=== PATIENT | male | born 2000 | race Caucasian/White ===

== ENCOUNTER 2019-04-03 00:39 | Emergency (ER) | payer SELFPAY ==
[~2019-04-03] VITALS: Ht 160 cm; Wt 89.8 kg
[2019-04-03] MEDS ORDERED: RX-ALBUTEROL INHALER (PROAIR) 8 GM IH ONE (00:48)
--- NOTE | 2019-04-03 00:50 | ED Respiratory ---
General Chief Complaint: Respiratory Problems Stated Complaint: TROUBLE BREATHING,ASTHMA Source: patient Exam Limitations: no limitations History of Present Illness Date Seen by Provider: Apr 03, 2019 Time Seen by Provider: 00:48 Initial Comments Patient traveling to [place]. He does not have his albuterol inhaler with him. He feels a little short of breath and is afraid he is going to have a full- blown attack [place]. This happened to him once before and did not have an inhaler. Allergies and Home Medications Allergies Coded Allergies: No Known Drug Allergies (Unverified , 04/03/19) Patient Home Medication List Home Medication List Reviewed: Yes Review of Systems Review of Systems Constitutional: no symptoms reported EENTM: no symptoms reported Respiratory: cough, short of breath Cardiovascular: no symptoms reported Genitourinary: no symptoms reported Musculoskeletal: no symptoms reported All Other Systems Reviewed Negative Unless Noted: Yes Physical Exam Vital Signs - First Documented 04/03/19 00:46 Temp 98.8 Pulse 84 Resp 20 B/P (MAP) 159/83 Pulse Ox 95 O2 Delivery Room Air Capillary Refill : Height: '" Weight: lbs. oz. kg; BMI Method: General Appearance: WD/WN, no apparent distress HEENT: pharynx normal Neck: supple Respiratory: lungs clear, normal breath sounds Cardiovascular: regular rate, rhythm, no edema Gastrointestinal: soft Extremities: normal inspection Neurologic/Psychiatric: alert, normal mood/affect Skin: normal color, warm/dry Progress/Results/Core Measures Suspected Sepsis SIRS Temperature: Pulse: Respiratory Rate: Blood Pressure / Mean: Results/Orders My Orders Orders - SILVA CONTRERAS MD Rx-Albuterol Inhaler (Rx-Proair) (04/03/19 01:00) Vital Signs/I&O 04/03/19 00:46 Temp 98.8 Pulse 84 Resp 20 B/P (MAP) 159/83 Pulse Ox 95 O2 Delivery Room Air Capillary Refill : Progress Note : Time: 00:49 Progress Note We gave patient a albuterol inhaler to take with him. Departure Impression Primary Impression: Asthma attack Disposition: HOME, SELF-CARE Condition: Stable Departure-Patient Inst. Decision time for Depature: 00:54 Patient Instructions: Asthma, Adult (DC) Add. Discharge Instructions: His inhaler 2 puffs every 4-6 hours as needed. All discharge instructions reviewed with patient and/or family. Voiced understanding. SILVA CONTRERAS MD Apr 03, 2019 00:49
--- OUTSIDE RECORDS SUMMARY | 2019-04-03 00:58 | XMS REPORT | Clinical Summary ---
Author Author [facility] Organization [facility] Address [address] [place] [address] Phone Care Team Providers Care Meteorological Equipment Repairer Name Role Phone GIOVANNA ANDERSON MD PCP Conditions or Problems Problem Name Problem Code Onset Date Status Entry Date Provider Comment Standard Description Annotate Encounter for routine child health examination with abnormal findings 154194328 (SNOMED CT) Active GIOVANNA ANDERSON MD Adult health examination Encounter for routine child health examination without abnormal findings Z00.129 (ICD-10-CM) Active GIOVANNA ANDERSON MD Encounter for routine child health examination without abnormal findings Primary insomnia 7691745 (SNOMED CT) Active GIOVANNA ANDERSON MD Primary insomnia Mild intermittent asthma J45.20 (ICD-10-CM) Active GIOVANNA ANDERSON MD Mild intermittent asthma, uncomplicated Seasonal Allergies 121406167 (SNOMED CT) Active GIOVANNA ANDERSON MD Seasonal allergy Medications Medication Instructions Start Date Stop Date Generic Name [facility] Provider ZYRTEC ALLERGY 10 MG TABS Take ONE tablet daily as needed CETIRIZINE HCL 37180316847 GIOVANNA ANDERSON MD PROAIR HFA 108 (90 Base) MCG/ACT AERS Use 2 puffs every 4 hours as needed ALBUTEROL SULFATE 75267036211 GIOVANNA ANDERSON MD TRAZODONE HCL 50 MG TABS take ONE and 1/2 tabs nightly before bed TRAZODONE HCL 56238529920 GIOVANNA ANDERSON MD Medications Administered No information available. Allergies, Adverse Reactions, Alerts No information available. Results Date Name Value Unit Range Flag Description Office Visit: 16yr [facility] / SEASONAL ALLERGIES / MILD INTERMITTENT ASTHMA INSTRUCTIONS SEASONAL ALLERGY-Call if worse or not improved in two days.MILD INTERMITTENT Diagnosis of asthma confirmed per National Asthma Education program guidelines. Parent understands the use/side effects of pr escribed medications. Barriers to prevention of attacks reviewed such allergen/smoke exposure, poor technique, intermittent compliance or medication confusion. An Asthma Action Plan given, reviewed and understood. Referred to additional educational resources as per request. Counseled on healthy lifestyle and regular exercise. Recheck in 1 to 2 months, with spirometry as appropriate, or sooner if symptoms worsen.Condition is stable according to National Asthma Education program Standards and home peak flow data if provided. Continue current medications. Barriers to prevention of attacks reviewed such allergen/smoke exposure, poor technique, intermittent compliance or medication confusion. Parent understands the use/side effects of prescribed medications as well as interactions and contraindications with OTC medications/supplements. Discussed allergy referral as appropriate. Spirometry results reviewed if performed. Updated copy of the Asthma Action Plan given, reviewed and understood. Goal is 100% control. Referred to additional online resources such as www.cdc.gov/asthma/children, www.asthma.com, and the office website. Counseled on healthy lifestyle and regular exercise. Provided Copy of the care plan as contained in the clinical summary.Recheck in 1 to 2 months or sooner if symptoms worsen.Growth and Development Appropriate.Routine anticipatory guidance for 16yr check up reviewed. Also any specific issues noted above. Chronic disease issues were addressed with this visit. Follow up in 1 year for check up. Giving encouragement to exercise (procedure) SMOK STATUS Former smoker Tobacco smoking status WAIS MEDS REVIEW ON NO RX MEDS Documentation of current medications (procedure) Plan of Care Type Date Detail Patient education Handouts/mdk/WELL CHECK VITAL SIGN Procedures No information available. Vital Signs Date Name Value Unit Description BMI (Body Mass Index) 28.77 kg/m2 Body Mass Index [Ratio] BP Diastolic 68 mm[Hg] blood pressure, diastolic - 8462-4 BP Systolic 128 mm[Hg] blood pressure, systolic - 8480-6 Heart Rate 72 /min pulse rate E&M - 8867-4 Height 62.25 [in_us] height E&M - 8302-2 Height 158.12 cm height in centimeters E&M Weight Measured 158 [lb_av] weight E&M - 3141-9 Weight Measured 71.82 kg weight in kilograms E&M
--- OUTSIDE RECORDS SUMMARY | 2019-04-03 00:58 | XMS REPORT | Clinical Summary ---
Author Author [facility] Organization [facility] Address [address] [place] [address] Phone Care Team Providers Care Group Work Program Director Name Role Phone GIOVANNA ANDERSON MD PCP Conditions or Problems Problem Name Problem Code Onset Date Status Entry Date Provider Comment Standard Description Annotate Encounter for routine child health examination with abnormal findings 329439456 (SNOMED CT) Active GIOVANNA ANDERSON MD Adult health examination Encounter for routine child health examination without abnormal findings Z00.129 (ICD-10-CM) Active GIOVANNA ANDERSON MD Encounter for routine child health examination without abnormal findings Primary insomnia 4054231 (SNOMED CT) Active GIOVANNA ANDERSON MD Primary insomnia Mild intermittent asthma J45.20 (ICD-10-CM) Active GIOVANNA ANDERSON MD Mild intermittent asthma, uncomplicated Seasonal Allergies 885113078 (SNOMED CT) Active GIOVANNA ANDERSON MD Seasonal allergy Medications Medication Instructions Start Date Stop Date Generic Name [facility] Provider ZYRTEC ALLERGY 10 MG TABS Take ONE tablet daily as needed CETIRIZINE HCL 04253572526 GIOVANNA ANDERSON MD PROAIR HFA 108 (90 Base) MCG/ACT AERS Use 2 puffs every 4 hours as needed ALBUTEROL SULFATE 27503736965 GIOVANNA ANDERSON MD TRAZODONE HCL 50 MG TABS take ONE and 1/2 tabs nightly before bed TRAZODONE HCL 20416755538 GIOVANNA ANDERSON MD Medications Administered No information [...] SMOK STATUS Former smoker Tobacco smoking status NHIS MEDS REVIEW ON NO RX MEDS Documentation of current medications (procedure) Vaccine Consent: VFC Vaccine VFC ELIGIBLE Yes child eligible for VFC (Vaccines for Children program) Plan of Care Type Date Detail Patient [...]
--- OUTSIDE RECORDS SUMMARY | 2019-04-03 00:58 | XMS REPORT | Clinical Summary ---
Author Author [facility] Organization [facility] Address [address] [place] [address] Phone Care Team Providers Care Guest Room Inspector Name Role Phone GIOVANNA ANDERSON MD PCP Conditions or Problems Problem Name Problem Code Onset Date Status Entry Date Provider Comment Standard Description Annotate Allergic rhinitis, unspecified 139818278 (SNOMED CT) Active MIGUEL ALEXANDRE MD Allergic condition Acute atopic conjunctivitis, unspecified eye 836121314 (SNOMED CT) Active MIGUEL ALEXANDRE MD Allergic condition Encounter for routine child health examination with abnormal findings 971011732 (SNOMED CT) Inactive GIOVANNA ANDERSON MD Adult health examination Encounter for routine child health examination without abnormal findings Z00.129 (ICD-10-CM) Active GIOVANNA ANDERSON MD Encounter for routine child health examination without abnormal findings Primary insomnia 5514485 (SNOMED CT) Active GIOVANNA ANDERSON MD Primary insomnia Mild intermittent asthma J45.20 (ICD-10-CM) Active GIOVANNA ANDERSON MD Mild intermittent asthma, uncomplicated Seasonal Allergies 140150104 (SNOMED CT) Inactive GIOVANNA ANDERSON MD Seasonal allergy Medications Medication Instructions Start Date Stop Date Generic Name [facility] Provider PEAK FLOW METER UNIVERSAL RANG ARLEN DIAGNOSIS REQUIRED: Dx of ___asthma_ Use daily or as otherwise instructed by physician. PEAK FLOW METER [id number] MIGUEL ALEXANDRE MD PREDNISOLONE SODIUM PHOSPHATE 15 MG/5ML SOLN Take 1/2 tsp by mouth twice a day for 3 days. PREDNISOLONE SODIUM PHOSPHATE 69597558224 MIGUEL ALEXANDRE MD PATANOL 0.1 % SOLN Place 1 drop in both eyes twice daily as needed for allergies OLOPATADINE HCL 53840267516 MIGUEL ALEXANDRE MD PREDNISONE 20 MG TABS Take TWO tabs in the morning and ONE tab at bedtime for 3- 5 day PREDNISONE 78779863564 MIGUEL ALEXANDRE MD PROAIR HFA 108 (90 Base) MCG/ACT AERS Use 2 puffs every 4 hours as needed ALBUTEROL SULFATE 16022231581 GIOVANNA ANDERSON MD ZYRTEC ALLERGY 10 MG TABS Take ONE tablet daily as needed CETIRIZINE HCL 29508318557 GIOVANNA ANDERSON MD TRAZODONE HCL 50 MG TABS take ONE and 1/2 tabs nightly before bed TRAZODONE HCL 88752188935 GIOVANNA ANDERSON MD PREDNISOLONE SODIUM PHOSPHATE 15 MG/5ML SOLN Take 1/2 tsp by mouth twice a day for 3 days. PREDNISOLONE SODIUM PHOSPHATE 78811160733 MIGUEL ALEXANDRE MD Medications Administered No information available. Allergies, Adverse Reactions, Alerts No information available. Results Date Name Value Unit Range Flag Description Office Visit: 16yr [facility] / SEASONAL ALLERGIES / MILD INTERMITTENT ASTHMA [...] check up. Giving encouragement to exercise (procedure) Vaccine Consent: VFC Vaccine VFC ELIGIBLE Yes child eligible for VFC (Vaccines for Children program) Office Visit: allergies SMOK STATUS Never smoker Tobacco smoking status [facility] Office Visit: allergies f/u MEDS REVIEW LIST UP TO DATE Documentation of current medications (procedure) Plan of Care Type Date Detail Appointment 10:00 AM MIGUEL ALEXANDRE MD, [address] [place], [address], Pending order G & C Test DNA Amplified, Urine Patient education Handouts/mdk/WELL CHECK VITAL SIGN Procedures No information available. Vital Signs Date Name Value Unit Description Heart Rate 72 /min pulse rate E&M - 8867-4 O2 % BldC Oximetry 95 % oxygen saturation, oximetry BMI (Body Mass Index) 28.77 kg/m2 Body Mass Index [Ratio] BP Diastolic 68 mm[Hg] blood pressure, diastolic - 8462-4 BP Systolic 128 mm[Hg] blood pressure, systolic - 8480-6 Height 62.25 [in_us] height E&M - 8302-2 Height 158.12 cm height in centimeters E&M Weight Measured 158 [lb_av] weight E&M - 3141-9 Weight Measured 71.82 kg weight in kilograms E&M
--- OUTSIDE RECORDS SUMMARY | 2019-04-03 00:58 | XMS REPORT | Clinical Summary ---
Author Author [facility] Organization [facility] Address [address] [place] [address] Phone Care Team Providers Care Photovoltaic Testing Technician Name Role Phone GIOVANNA ANDERSON MD PCP Conditions or Problems Problem Name Problem Code Onset Date Status Entry Date Provider Comment Standard Description Annotate Encounter for routine child health examination with abnormal findings 504501846 (SNOMED CT) Active GIOVANNA ANDERSON MD Adult health examination Encounter for routine child health examination without abnormal findings Z00.129 (ICD-10-CM) Active GIOVANNA ANDERSON MD Encounter for routine child health examination without abnormal findings Primary insomnia 0898310 (SNOMED CT) Active GIOVANNA ANDERSON MD Primary insomnia Mild intermittent asthma J45.20 (ICD-10-CM) Active GIOVANNA ANDERSON MD Mild intermittent asthma, uncomplicated Seasonal Allergies 019312625 (SNOMED CT) Active GIOVANNA ANDERSON MD Seasonal allergy Medications Medication Instructions Start Date Stop Date Generic Name [facility] Provider ZYRTEC ALLERGY 10 MG TABS Take ONE tablet daily as needed CETIRIZINE HCL 65908999649 GIOVANNA ANDERSON MD PROAIR HFA 108 (90 Base) MCG/ACT AERS Use 2 puffs every 4 hours as needed ALBUTEROL SULFATE 58909958976 GIOVANNA ANDERSON MD TRAZODONE HCL 50 MG TABS take ONE and 1/2 tabs nightly before bed TRAZODONE HCL 50058528172 GIOVANNA ANDERSON MD Medications Administered No information [...] SMOK STATUS Former smoker Tobacco smoking status MIIS MEDS REVIEW ON NO RX MEDS Documentation [...]
--- OUTSIDE RECORDS SUMMARY | 2019-04-03 00:59 | XMS REPORT | Clinical Summary ---
Author Author [facility] Organization [facility] Address [address] [place] [address] Phone Care Team Providers Care Cookie Breaker Name Role Phone GIOVANNA ANDERSON MD PCP Conditions or Problems Problem Name Problem Code Onset Date Status Entry Date Provider Comment Standard Description Annotate Allergic rhinitis, unspecified 831791857 (SNOMED CT) Active MIGUEL ALEXANDRE MD Allergic condition Acute atopic conjunctivitis, unspecified eye 799601592 (SNOMED CT) Active MIGUEL ALEXANDRE MD Allergic condition Encounter for routine child health examination with abnormal findings 034877009 (SNOMED CT) Inactive GIOVANNA ANDERSON MD Adult health examination Encounter for routine child health examination without abnormal findings Z00.129 (ICD-10-CM) Active GIOVANNA ANDERSON MD Encounter for routine child health examination without abnormal findings Primary insomnia 1117575 (SNOMED CT) Active GIOVANNA ANDERSON MD Primary insomnia Mild intermittent asthma J45.20 (ICD-10-CM) Active GIOVANNA ANDERSON MD Mild intermittent asthma, uncomplicated Seasonal Allergies 585944584 (SNOMED CT) Active GIOVANNA ANDERSON MD Seasonal allergy Medications Medication Instructions Start Date Stop Date Generic Name [facility] Provider PREDNISOLONE SODIUM PHOSPHATE 15 MG/5ML SOLN Take 1/2 tsp by mouth twice a day for 3 days. PREDNISOLONE SODIUM PHOSPHATE 96098194755 MIGUEL ALEXANDRE MD PATANOL 0.1 % SOLN Place 1 drop in both eyes twice daily as needed for allergies OLOPATADINE HCL 38371491180 MIGUEL ALEXANDRE MD PREDNISONE 20 MG TABS Take TWO tabs in the morning and ONE tab at bedtime for 3- 5 day PREDNISONE 67548594738 MIGUEL ALEXANDRE MD ZYRTEC ALLERGY 10 MG TABS Take ONE tablet daily as needed CETIRIZINE HCL 55216493854 GIOVANNA ANDERSON MD PROAIR HFA 108 (90 Base) MCG/ACT AERS Use 2 puffs every 4 hours as needed ALBUTEROL SULFATE 66251196802 GIOVANNA ANDERSON MD TRAZODONE HCL 50 MG TABS take ONE and 1/2 tabs nightly before bed TRAZODONE HCL 31940097227 GIOVANNA ANDERSON MD Medications Administered No information available. Allergies, Adverse Reactions, Alerts No information available. Results Date Name Value Unit Range Flag Description Office Visit: 16yr [facility] / SEASONAL ALLERGIES / MILD INTERMITTENT ASTHMA [...] SMOK STATUS Never smoker Tobacco smoking status NHIS MEDS REVIEW LIST UP TO DATE Documentation of current medications (procedure) Plan of Care Type Date Detail Appointment 02:30 PM MIGUEL ALEXANDRE MD, [address] [place], [address], Patient education Handouts/mdk/WELL CHECK VITAL SIGN Procedures [...]
--- OUTSIDE RECORDS SUMMARY | 2019-04-03 00:59 | XMS REPORT | Clinical Summary ---
Author Author [facility] Organization [facility] Address [address] [place] [address] Phone Care Team Providers Care Slab Installer Name Role Phone MIGUEL ALEXANDRE MD PCP Conditions or Problems Problem Name Problem Code Onset Date Status Entry Date Provider Comment Standard Description Annotate Allergic rhinitis, unspecified 742745964 (SNOMED CT) Active MIGUEL ALEXANDRE MD Allergic condition Acute atopic conjunctivitis, unspecified eye 193048798 (SNOMED CT) Active MIGUEL ALEXANDRE MD Allergic condition Encounter for routine child health examination with abnormal findings 599232562 (SNOMED CT) Inactive GIOVANNA ANDERSON MD Adult health examination Encounter for routine child health examination without abnormal findings Z00.129 (ICD-10-CM) Active GIOVANNA ANDERSON MD Encounter for routine child health examination without abnormal findings Primary insomnia 6023508 (SNOMED CT) Active GIOVANNA ANDERSON MD Primary insomnia Mild intermittent asthma J45.20 (ICD-10-CM) Active GIOVANNA ANDERSON MD Mild intermittent asthma, uncomplicated Seasonal Allergies 054423315 (SNOMED CT) Inactive GIOVANNA ANDERSON MD Seasonal allergy Medications Medication Instructions Start Date Stop Date Generic Name [facility] Provider PEAK FLOW METER UNIVERSAL RANG ARLEN DIAGNOSIS REQUIRED: Dx of ___asthma_ Use daily or as otherwise instructed by physician. PEAK FLOW METER [id number] MIGUEL ALEXANDRE MD PREDNISOLONE SODIUM PHOSPHATE 15 MG/5ML SOLN Take 1/2 tsp by mouth twice a day for 3 days. PREDNISOLONE SODIUM PHOSPHATE 19298557731 MIGUEL ALEXANDRE MD PATANOL 0.1 % SOLN Place 1 drop in both eyes twice daily as needed for allergies OLOPATADINE HCL 63609179053 MIGUEL ALEXANDRE MD PREDNISONE 20 MG TABS Take TWO tabs in the morning and ONE tab at bedtime for 3- 5 day PREDNISONE 53632296975 MIGUEL ALEXANDRE MD PROAIR HFA 108 (90 Base) MCG/ACT AERS Use 2 puffs every 4 hours as needed ALBUTEROL SULFATE 71738436375 GIOVANNA ANDERSON MD ZYRTEC ALLERGY 10 MG TABS Take ONE tablet daily as needed CETIRIZINE HCL 27700817616 GIOVANNA ANDERSON MD TRAZODONE HCL 50 MG TABS take ONE and 1/2 tabs nightly before bed TRAZODONE HCL 51841275334 GIOVANNA ANDERSON MD PREDNISOLONE SODIUM PHOSPHATE 15 MG/5ML SOLN Take 1/2 tsp by mouth twice a day for 3 days. PREDNISOLONE SODIUM PHOSPHATE 63436101859 MIGUEL ALEXANDRE MD Medications Administered No information available. Allergies, Adverse Reactions, Alerts No information available. Results Date Name Value Unit Range Flag Description Office Visit: 16yr [facility] / SEASONAL ALLERGIES / MILD INTERMITTENT ASTHMA [...] SMOK STATUS Never smoker Tobacco smoking status [facility] Office Visit: allergies f/u MEDS REVIEW LIST UP TO DATE Documentation of current medications (procedure) Lab Report: CHLAMYDIA GC BY PCR GC PCR NEGATIVE NEG Neisseria gonorrhoeae DNA [Presence] in Unspecified specimen by Probe and target amplification method CHLAMYD PCR NEGATIVE NEG Chlamydia trachomatis DNA [Presence] in Urine by Probe and target amplification method SAMPLE SRC URINE source of sample Plan of Care Type Date Detail Pending order G & C Test DNA Amplified, Urine Patient education Handouts/mdk/WELL CHECK VITAL SIGN Procedures Code Procedure Name Date Entry Date CPT-52662 G & C Test DNA Amplified, Urine Vital Signs Date Name Value Unit Description [...]
--- OUTSIDE RECORDS SUMMARY | 2019-04-03 00:59 | XMS REPORT ---
Author Author Sharyn Hayden Organization [employer] Address Unknown Phone Unavailable Care Team Providers Care Technical Recruiter Name Role Phone Sharyn Hayden CP Unavailable Allergies, Adverse Reactions, Alerts Substance Reaction Event Type N.K.D.A. Info Not Available Non Drug Allergy Problems Problem Type Condition Code Onset Dates Condition Status Problem PTSD (post-traumatic stress disorder) F43.10 Active Problem Allergic rhinitis J30.9 Active Problem ADHD (attention deficit hyperactivity disorder) F90.9 Active Assessment Tobacco use Z72.0 Active Problem Behavior problems F69 Active Assessment Child physical exam Z00.129 Active Medications Medication Code System Code Instructions Start Date End Date Status Dosage Multivitamin [facility] [address] not defined Procedures Procedure Coding System Code Date Preventive Care New Pt. Age 12-17 CPT-4 89901 Jun 25, 2015 Vital Signs Date/Time: Jun 25, 2015 Blood Pressure Diastolic 68 mm Hg Blood Pressure Systolic 122 mm Hg Cardiac Monitoring Heart Rate 72 /min BMI 26.21 Index Weight 148 lbs Height 63 in Results No Known Results Summary Purpose [employer] Submission
--- OUTSIDE RECORDS SUMMARY | 2019-04-03 00:59 | XMS REPORT | Clinical Summary ---
Author Author [facility] Organization [facility] Address [address] [place] [address] Phone Care Team Providers Care Box Toe Maker Name Role Phone MIGUEL ALEXANDRE MD PCP Conditions or Problems Problem Name Problem Code Onset Date Status Entry Date Provider Comment Standard Description Annotate Allergic rhinitis, unspecified 512719914 (SNOMED CT) Active MIGUEL ALEXANDRE MD Allergic condition Acute atopic conjunctivitis, unspecified eye 707157755 (SNOMED CT) Active MIGUEL ALEXANDRE MD Allergic condition Encounter for routine child health examination with abnormal findings 105157722 (SNOMED CT) Inactive GIOVANNA ANDERSON MD Adult health examination Encounter for routine child health examination without abnormal findings Z00.129 (ICD-10-CM) Active GIOVANNA ANDERSON MD Encounter for routine child health examination without abnormal findings Primary insomnia 7744312 (SNOMED CT) Active GIOVANNA ANDERSON MD Primary insomnia Mild intermittent asthma J45.20 (ICD-10-CM) Active GIOVANNA ANDERSON MD Mild intermittent asthma, uncomplicated Seasonal Allergies 440587794 (SNOMED CT) Inactive GIOVANNA ANDERSON MD Seasonal allergy Medications Medication Instructions Start Date Stop Date Generic Name NDC Provider PEAK FLOW METER UNIVERSAL RANG ARLEN DIAGNOSIS REQUIRED: Dx of ___asthma_ Use daily or as otherwise instructed by physician. PEAK FLOW METER [id number] MIGUEL ALEXANDRE MD PREDNISOLONE SODIUM PHOSPHATE 15 MG/5ML SOLN Take 1/2 tsp by mouth twice a day for 3 days. PREDNISOLONE SODIUM PHOSPHATE 08414734335 MIGUEL ALEXANDRE MD PATANOL 0.1 % SOLN Place 1 drop in both eyes twice daily as needed for allergies OLOPATADINE HCL 32441129900 MIGUEL ALEXANDRE MD PREDNISONE 20 MG TABS Take TWO tabs in the morning and ONE tab at bedtime for 3- 5 day PREDNISONE 70938513228 MIGUEL ALEXANDRE MD PROAIR HFA 108 (90 Base) MCG/ACT AERS Use 2 puffs every 4 hours as needed ALBUTEROL SULFATE 83177473519 GIOVANNA ANDERSON MD ZYRTEC ALLERGY 10 MG TABS Take ONE tablet daily as needed CETIRIZINE HCL 84925847117 GIOVANNA ANDERSON MD TRAZODONE HCL 50 MG TABS take ONE and 1/2 tabs nightly before bed TRAZODONE HCL 84071049087 GIOVANNA ANDERSON MD PREDNISOLONE SODIUM PHOSPHATE 15 MG/5ML SOLN Take 1/2 tsp by mouth twice a day for 3 days. PREDNISOLONE SODIUM PHOSPHATE 70136602036 MIGUEL ALEXANDRE MD Medications Administered No information available. Allergies, Adverse Reactions, Alerts No information available. Results Date Name Value Unit Range Flag Description Office Visit: 16yr [facility] / SEASONAL ALLERGIES / MILD [...] SMOK STATUS Never smoker Tobacco smoking status [facility] Office Visit: allergies f/u MEDS REVIEW LIST UP TO DATE Documentation of current medications (procedure) Plan of Care Type Date Detail Appointment 10:00 AM MIGUEL ALEXANDRE MD, [address] [place], [address], Pending order G & C Test DNA [...]
--- OUTSIDE RECORDS SUMMARY | 2019-04-03 00:59 | XMS REPORT ---
Author Author [facility] OM[facility] [place] [address] Care Team Providers Care Quality Assurance Monitor Chassis Name Role Phone STEPHAN GAMBOA Unavailable ZENON BAXTER Unavailable KRISTIAN VELA Unavailable VERNON OMER Unavailable Problems Problem SNOMED Onset Date Resolved Date Status N/A N/A N/A N/A N/A Allergies, Adverse Reactions NA Care Plan Goal Instructions Child will be functioning well in all mattson. Further assessment by [facility] treatment team. Engage with treatment team to build rapport. Learn and practice coping skills to reduce symptoms and improve functioning. The following Services will be utilized 1 - 3 times until goal is reached: Improve and maintain functioning through medical psychiatric services. Initial Psychiatric Evaluation, Ongoing medication monitoring and management, Case Conference with multidisciplinary members of the [facility] team as indicated, and/or Collaboration and coordination with outside medical providers as indicated by providing the following services: 07863 interactive complexity 79071 psychiatric diagnostic eval w/ meds 16687 30 min psychotherapy add-on 12114 45 [place] [address] 60 min psychotherapy add-on 21930 med injection 60014 New Patient E&M (level 1) 10791 New Patient E&M (level 2) 25683 New Patient E&M (level 3) 48433 New patient E&M (level 4) 29513 New Patient E&M (level 5) 67360 Established Patient E&M (level 1) 15099 Established Patient E&M (level 2) 08845 Established Patient E&M (level 3) 06477 Established Patient E& amp;M (level 4) 28666 Established Patient E&M (level 5) 9935x prolonged service code 58154 case conference w/o clt & fam w/ [place] 229[address] case conference w/o clt w/ MD Child will be functioning well in all mattson. Further assessment by [facility] treatment team. Engage with treatment team to build rapport. Learn and practice coping skills to reduce symptoms and improve functioning. The following Services will be utilized 1 - 3 times until goal is reached: Improve and maintain functioning through medical psychiatric services. Initial Psychiatric Evaluation, Ongoing medication monitoring and management, Case Conference with multidisciplinary members of the [facility] team as indicated, and/or Collaboration and coordination with outside medical providers as indicated by providing the following services: 49565 interactive complexity 41628 psychiatric diagnostic eval w/ meds 85633 30 min psychotherapy add-on 58279 45 [place] [address] 60 min psychotherapy add-on 91132 med injection 39921 New Patient E&M (level 1) 64250 New Patient E&M (level 2) 02488 New Patient E&M (level 3) 62747 New patient E&M (level 4) 63217 New Patient E&M (level 5) 04561 Established Patient E&M (level 1) 10040 Established Patient E&M (level 2) 22760 Established Patient E&M (level 3) 50588 Established Patient E& amp;M (level 4) 07651 Established Patient E&M (level 5) 9935x prolonged service code 16964 case conference w/o tiffanie & kiel w/ 66232 case conference w/o tiffanie w/ Client desires to "age out" of foster care successfully, client will make safe choices and resolve distress in adaptive ways. Client will learn and show proficiency in coping skills to increase motivation, manage impulses, delay gratification, manage emotion reactivity without physical aggression or running away. Medications NA Lab Results NA Encounters Date Time Service Code Provider 11:31:00 am VERNON OMER 09:44:00 am VERNON OMER Family History Functional Status NA Immunizations NA Vital Signs NA Social History NA Hospital Discharge Instructions NA Instructions * Not Applicable Procedures NA Purpose Electronic Copy
--- OUTSIDE RECORDS SUMMARY | 2019-04-03 00:59 | XMS REPORT ---
Author Author [facility] OM[facility] Organization [place] [address] Care Team Providers Care Admission Nurse Name Role Phone STEPHAN GAMBOA Unavailable ZENON [...] as indicated by providing the following services: 57250 interactive complexity 69540 psychiatric diagnostic eval w/ meds 89036 30 min psychotherapy add-on 72929 45 [place] [address] 60 min psychotherapy add-on 54694 med injection 50336 New Patient E&M (level 1) 37956 New Patient E&M (level 2) 73180 New Patient E&M (level 3) 36587 New patient E&M (level 4) 08537 New Patient E&M (level 5) 29280 Established Patient E&M (level 1) 21730 Established Patient E&M (level 2) 93347 Established Patient E&M (level 3) 23256 Established Patient E& amp;M (level 4) 52516 Established Patient E&M (level 5) 9935x prolonged service code 34571 case conference w/o clt & [place]/ [place] 29775 case conference w/o clt w/ MD Child [...] Case Conference with multidisciplinary members of the [facility] team as indicated, and/or Collaboration and coordination with outside medical providers as indicated by providing the following services: 05656 interactive complexity 32757 psychiatric diagnostic eval w/ meds 06188 30 min psychotherapy add-on 94218 45 [place] [address] 60 min psychotherapy add-on 84218 med injection 51934 New Patient E&M (level 1) 88606 New Patient E&M (level 2) 45517 New Patient E&M (level 3) 49899 New patient E&M (level 4) 17590 New Patient E&M (level 5) 85845 Established Patient E&M (level 1) 85293 Established Patient E&M (level 2) 16301 Established Patient E&M (level 3) 13010 Established Patient E& amp;M (level 4) 59877 Established Patient E&M (level 5) 9935x prolonged service code 35691 case conference w/o tiffanie & kiel w/ 73643 case conference w/o tiffanie w/ Client desires [...]
--- OUTSIDE RECORDS SUMMARY | 2019-04-03 00:59 | XMS REPORT | Continuity Of Care Document ---
Author Author [facility] Organization [facility] Address [address] [place] [address] Phone Care Team Providers Care Calender Roll Press Operator Name Role Phone CRISTHIAN LEON MD PP SUNI BEAVERS MD AT Results Results No results recorded. Allergies and Adverse Reactions Allergies and Adverse Reactions Patient Unit Number: [id number] Agent Type Reaction Severity Status NO KNOWN DRUG ALLERGIES Drug Allergy Unknown Unknown Active Problem List Problem List Visit/Account #[id number] (2015 8:07pm - 2015 9:37pm) Acute Problems: Code/Condition Comments Documented Start Date Documented Resolved Date Code(s) Nasal bone fracture ICD10: S02.2XXA Fracture of nasal bone ICD9: 802.0 Fracture of nasal bone SNOMED: 997383239 Fracture of nasal bone Concussion ICD10: S06.0X9A Concussion ICD9: 850.9 Concussion SNOMED: 17451742 Concussion Plan of Care Plan Of Care Visit/Account #[id number] (2015 8:07pm - 2015 9:37pm) Patient Instructions Follow up with ENT next week. Call office on Thursday morning for appointment. Ice to the area of pain and swelling. Take ibuprofen 600 mg by mouth 3 times a day with food when necessary pain. Take Zofran as needed for nausea/vomiting. Take adequate rest in a dark room for 24 hrs and do not watch TV, video games or texting for 24 hours. Return to the emergency room if symptoms worsens or has any concern. Vital Signs Vital Signs Visit/Account #[id number] (2015 8:07pm - 2015 9:37pm) Sign First Result Last Result Code(s) Body Mass Index Body Mass Index (BMI): 27.0 kg/m2 On 2015 7:59pm 33317-1 BMI (body mass index) Body Mass Index as a Calculated Value 27.5 kg/m2 On 2015 7:59pm 80974-4 BMI (body mass index) Body Surface Area as a Calculated Value 1.74 m2 On 2015 7:59pm 3140-1 BSA (body surface area) Height (Feet/Inches) 5 [ft_us] 3 [in_us] On 2015 7:59pm Temperature in Fahrenheit Temperature (Fahrenheit): 100.4 [degF] On 2015 7:59pm 8310-5 Body Temperature Weight in Kilograms Weight (Kilograms): 70.45 kg On 2015 7:59pm 3141-9 Weight Measured 77700-0 Body weight measured in kilograms Functional Status Functional and Cognitive Status No Functional Status Data Medications Inpatient/Ordered Medications - Medications administered during hospital visit Visit/Account #[id number] (2015 8:07pm - 2015 9:37pm) Medication Route Sig/Schedule Precondition/Indication Comments/Instructions Codes ZOFRAN ODT(ONDANSETRON HCL) 4 MG TAB Dose: 4 MG ORAL NOW Label Comments: MAY INCREASE FALL RISK Ondansetron 4 MG Disintegrating Oral Tablet (RxNorm): 533675 ZOFRAN ODT (ONDANSETRON HCL) NDC: 21176661653 MOTRIN(IBUPROFEN) 200 MG TAB Dose: 600 MG ORAL NOW Ibuprofen 200 MG Oral Tablet (RxNorm): 136376 MOTRIN (IBUPROFEN) NDC: 56516466621 History Of Encounters Encounters Visit/Account #[id number] (2015 8:07pm - 2015 9:37pm) Account Status Physican Of Record Reason For Visit Visit Diagnosis Start Date/Time Stop Date/Time ER SUNI BEAVERS MD HIT IN NOSE Not Available 2015 8:07pm 2015 9:37pm History of Procedures Procedure List No procedures recorded. Discharge Instructions Discharge Instructions Visit/Account #[id number] (2015 8:07pm - 2015 9:37pm) DISCHARGE INSTRUCTIONS Physician Documentation Social History Social History No Social History Data. Immunizations Immunizations Patient Unit Number: [id number] Immunizations No immunizations recorded.
--- OUTSIDE RECORDS SUMMARY | 2019-04-03 00:59 | XMS REPORT ---
Author Author Sharyn Hayden Organization [employer] Address Unknown Phone Unavailable Care Team Providers Care Head Of Science Name Role Phone Sharyn Hayden CP Unavailable Allergies No Known Allergies Problems Problem Type Condition Code Onset Dates Condition Status Problem PTSD (post-traumatic stress disorder) F43.10 Active Problem Allergic rhinitis J30.9 Active Problem ADHD (attention deficit hyperactivity disorder) F90.9 Active Problem Behavior problems F69 Active Medications No Known Medications Results No Known Results Summary Purpose [employer] Submission
--- OUTSIDE RECORDS SUMMARY | 2019-04-03 00:59 | XMS REPORT ---
Author Author [facility]ERN[facility] OM[facility] Organization [place] [address] Care Team Providers Care Men'S And Boys' Clothing Salesperson Name Role Phone STEPHAN GAMBOA Unavailable ZENON BXATER Unavailable KRISTIAN VELA Unavailable VERNON OMER Unavailable [...] as indicated by providing the following services: 36451 interactive complexity 12902 psychiatric diagnostic eval w/ meds 45000 30 min psychotherapy add-on 58592 45 [place] [address] 60 min psychotherapy add-on 45340 med injection 49643 New Patient E&M (level 1) 08833 New Patient E&M (level 2) 31727 New Patient E&M (level 3) 42028 New patient E&M (level 4) 93398 New Patient E&M (level 5) 81446 Established Patient E&M (level 1) 64384 Established Patient E&M (level 2) 28694 Established Patient E&M (level 3) 95221 Established Patient E& amp;M (level 4) 40809 Established Patient E&M (level 5) 9935x prolonged service code 96109 case conference w/o clt & [place]/ [place] [address] case conference w/o clt w/ MD Child [...] Case Conference with multidisciplinary members of the [facility] team as indicated, and/or Collaboration and coordination with outside medical providers as indicated by providing the following services: 20894 interactive complexity 93062 psychiatric diagnostic eval w/ meds 97013 30 min psychotherapy add-on 23548 45 [place] [address] 60 min psychotherapy add-on 71944 med injection 17270 New Patient E&M (level 1) 83682 New Patient E&M (level 2) 18317 New Patient E&M (level 3) 77004 New patient E&M (level 4) 07424 New Patient E&M (level 5) 80888 Established Patient E&M (level 1) 21914 Established Patient E&M (level 2) 07031 Established Patient E&M (level 3) 29597 Established Patient E& amp;M (level 4) 49394 Established Patient E&M (level 5) 9935x prolonged service code 86820 case conference w/o tiffanie & kiel w/ 56395 case conference w/o tiffanie w/ Client desires [...] am VERNON OMER 09:44:00 am VERNON OMER 12:00:00 am PSYCHIATRIC DIAGNOSTIC EVALUATION 78458 KRISTIAN VELA 12:00:00 am PSYCHOTHERAPY, 45 MINUTES 63654 STEPHAN GAMBOA 12:00:00 am FAMILY THERAPY 64768 STEPHAN GAMBOA Family History Functional Status NA Immunizations NA Vital Signs NA Social History NA Hospital Discharge Instructions NA Instructions * Not Applicable Procedures NA Purpose Electronic Copy
--- OUTSIDE RECORDS SUMMARY | 2019-04-03 00:59 | XMS REPORT | Clinical Summary ---
Author Author [facility], [facility] ALBERTO Organization [facility] Address [address] [place] [address] Phone Care Team Providers Care Transmitter Tester Name Role Phone MIGUEL ALEXANDRE MD PCP Conditions or Problems Problem Name Problem Code Onset Date Status Entry Date Provider Comment Standard Description Annotate Allergic rhinitis, unspecified 579125012 (SNOMED CT) Active MIGUEL ALEXANDRE MD Allergic condition Acute atopic conjunctivitis, unspecified eye 643869208 (SNOMED CT) Active MIGUEL ALEXANDRE MD Allergic condition Encounter for routine child health examination with abnormal findings 756123952 (SNOMED CT) Inactive GIOVANNA ANDERSON MD Adult health examination Encounter for routine child health examination without abnormal findings Z00.129 (ICD-10-CM) Active GIOVANNA ANDERSON MD Encounter for routine child health examination without abnormal findings Primary insomnia 4222808 (SNOMED CT) Active GIOVANNA ANDERSON MD Primary insomnia Mild intermittent asthma J45.20 (ICD-10-CM) Active GIOVANNA ANDERSON MD Mild intermittent asthma, uncomplicated Seasonal Allergies 572503072 (SNOMED CT) Inactive GIOVANNA ANDERSON MD Seasonal allergy Medications Medication Instructions Start Date Stop Date Generic Name NDC Provider PEAK FLOW METER UNIVERSAL RANG ARLEN DIAGNOSIS REQUIRED: Dx of ___asthma_ Use daily or as otherwise instructed by physician. PEAK FLOW METER [id number] MIGUEL ALEXANDRE MD PREDNISOLONE SODIUM PHOSPHATE 15 MG/5ML SOLN Take 1/2 tsp by mouth twice a day for 3 days. PREDNISOLONE SODIUM PHOSPHATE 47722311003 MIGUEL ALEXANDRE MD PATANOL 0.1 % SOLN Place 1 drop in both eyes twice daily as needed for allergies OLOPATADINE HCL 94985312391 MIGUEL ALEXANDRE MD PREDNISONE 20 MG TABS Take TWO tabs in the morning and ONE tab at bedtime for 3- 5 day PREDNISONE 92478896875 MIGUEL ALEXANDRE MD PROAIR HFA 108 (90 Base) MCG/ACT AERS Use 2 puffs every 4 hours as needed ALBUTEROL SULFATE 38751163858 GIOVANNA ANDERSON MD ZYRTEC ALLERGY 10 MG TABS Take ONE tablet daily as needed CETIRIZINE HCL 55724463240 GIOVANNA ANDERSON MD TRAZODONE HCL 50 MG TABS take ONE and 1/2 tabs nightly before bed TRAZODONE HCL 53274434101 GIOVANNA ANDERSON MD PREDNISOLONE SODIUM PHOSPHATE 15 MG/5ML SOLN Take 1/2 tsp by mouth twice a day for 3 days. PREDNISOLONE SODIUM PHOSPHATE 38374845366 MIGUEL ALEXANDRE MD Medications Administered No information available. Allergies, Adverse Reactions, Alerts No information available. Results Date Name Value Unit Range Flag Description Office Visit: 16yr [facility] / SEASONAL ALLERGIES / MILD INTERMITTENT ASTHMA [...] SMOK STATUS Never smoker Tobacco smoking status [facility] Office Visit: allergies f/u MEDS REVIEW LIST [...] Procedures Code Procedure Name Date Entry Date CPT-72286 G & C Test DNA Amplified, Urine [...]
[2019-04-03] MEDS ORDERED: RX-ALBUTEROL INHALER (PROAIR) 8 GM IH PRN (01:00)
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
--- OUTSIDE RECORDS SUMMARY | 2019-04-03 01:00 | XMS REPORT | Continuity of Care Document ---
Author Author [facility] Address [address] [place] [address] Care Team Providers Care Cost Accountant Name Role Phone , PCP Unavailable , Attphys Unavailable Allergies, Adverse Reactions, Alerts No allergy information available. Medications No medication information available. Problem List No problem information available. Procedures No known history of procedures. Relevant Diagnostic Tests and/or Laboratory Data No known relevant diagnostic tests, laboratory data, and/or discharge summary. Hospital Discharge Instructions No known hospital discharge instructions. Encounters Encounter Facility Location Admit/Visit Date Discharge/Departure Date Attending Provider Departed Referred [facility] - [facility] Acute July 30, 2018 9:27am July 30, 2018 9:28am , Functional Status No known functional status. Immunizations No known immunizations. Plan of Care No Known Plan of Care Information Social History No known social history. Vital Signs No known vital signs results.
--- OUTSIDE RECORDS SUMMARY | 2019-04-03 01:00 | XMS REPORT | Referral Summary ---
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 Hand Name Role Phone No PCP, Pt States PCP Encounter VC Date(s): 05/22/16 - 05/22/16 [facility] [address] [place] [address] [facility] Discharge Disposition: 01-Home or Self Care Attending Physician: Provider, Immediate Care Attending Physician: Fazal Murry MD Admitting Physician: Provider, Immediate Care Vital Signs Most recent to 1 oldest [Reference Range]: Temperature Oral 37.4 degC [36.0-37.6 degC] (05/22/16 12:34 PM) Peripheral Pulse 86 bpm Rate [55-90 bpm] (05/22/16 12:34 PM) Blood Pressure 133/83 mmHg [90-138/45-84 mmHg] (05/22/16 12:34 PM) SpO2 97 % (05/22/16 12:34 PM) Problem List Condition Effective Dates Status Health Status Informant ADHD (attention Active deficit hyperactivity disorder)(Confirmed) Irritability and Active anger(Confirmed) Allergies, Adverse Reactions, Alerts No Known Medication Allergies Medications albuterol 0 Refill(s) Start Date: 05/22/16 Status: Ordered fluticasone 50 mcg/inh nasal spray sprays, Nasal, Daily, 0 Refill(s) Start Date: 05/22/16 Status: Ordered hydrOXYzine 0 Refill(s) Start Date: 05/22/16 Status: Ordered ibuprofen 0 Refill(s) Start Date: 04/03/14 Status: Ordered loratadine 0 Refill(s) Start Date: 05/22/16 Status: Ordered traZODone Oral, 0 Refill(s) Start Date: 05/22/16 Status: Ordered Zofran ODT 4 mg oral tablet, disintegrating 4 mg 1 tabs, Oral, q8hr, as needed for nausea/vomiting, X 2 days, # 6 tabs, 1 Re fill(s), Pharmacy: [facility], 1 tabs Oral q8hr,x2 days,PRN:as needed for nausea/vomiting Start Date: 05/22/16 Stop Date: 05/26/16 Status: Ordered Results No data available for this section Immunizations No data available for this section Procedures No data available for this section Social History Social History Type Response Smoking Status Current every day smoker Assessment and Plan Extracted from: Title: Ambulatory Patient Education Author: Fazal Murry MD Date: 05/22/16 Pediatrics Abdominal Pain, Pediatric Abdominal pain is one of the most common complaints in pediatrics. Many things can cause abdominal pain, and the causes change as your child grows. Usually, abdominal pain is not serious and will improve without treatment. It can often be observed and treated at home. Your child's health care provider will take a careful history and do a physical exam to help diagnose the cause of your child's pain. The health care provider may order blood tests and X-rays to help determine the cause or seriousness of your child's pain. However, in many cases, more time must pass before a clear cause of the pain can be found. Until then, your child's health care provider may not know if your child needs more testing or further treatment. HOME CARE INSTRUCTIONS Monitor your child's abdominal pain for any changes. Give medicines only as directed by your child's health care provider. Do not give your child laxatives unless directed to do so by the health care provider. Try giving your child a clear liquid diet (broth, tea, or water) if directed by the health care provider. Slowly move to a bland diet as tolerated. Make sure to do this only as directed. Have your child drink enough fluid to keep his or her urine clear or pale yellow. Keep all follow-up visits as directed by your child's health care provider. SEEK MEDICAL CARE IF: Your child's abdominal pain changes. Your child does not have an appetite or begins to lose weight. Your child is constipated or has diarrhea that does not improve over 2 3 days. Your child's pain seems to get worse with meals, after eating, or with certain foods. Your child develops urinary problems like bedwetting or pain with urinating. Pain wakes your child up at night. Your child begins to miss school. Your child's mood or behavior changes. Your child who is older than 3 months has a fever. SEEK IMMEDIATE MEDICAL CARE IF: Your child's pain does not go away or the pain increases. Your child's pain stays in one portion of the abdomen. Pain on the right side could be caused by appendicitis. Your child's abdomen is swollen or bloated. Your child who is younger than 3 months has a fever of 100F (38C) or higher. Your child vomits repeatedly for 24 hours or vomits blood or green bile. There is blood in your child's stool (it may be bright red, dark red, or black). Your child is dizzy. Your child pushes your hand away or screams when you touch his or her abdomen. Your infant is extremely irritable. Your child has weakness or is abnormally sleepy or sluggish (lethargic). Your child develops new or severe problems. Your child becomes dehydrated. Signs of dehydration include: Extreme thirst. Cold hands and feet. Blotchy (mottled) or bluish discoloration of the hands, lower legs, and feet. Not able to sweat in spite of heat. Rapid breathing or pulse. Confusion. Feeling dizzy or feeling off-balance when standing. Difficulty being awakened. Minimal urine production. No tears. MAKE SURE YOU: Understand these instructions. Will watch your child's condition. Will get help right away if your child is not doing well or gets worse. This information is not intended to replace advice given to you by your health care provider. Make sure you discuss any questions you have with your health care provider. Document Released: 06/28/2014 Document Revised: 09/28/2015 Document Reviewed: 06/28/2014 [employer] Patient Information 2016 [employer], [facility]. No follow up information was provided.
== END 2019-04-03 00:56 | disposition home or self-care (01) ==
LOC: ER FS 00:41
DX: J45.901 Unspecified asthma with (acute) exacerbation (principal)
CPT/HCPCS: 99282